=== PATIENT | male | born 1945 | race Caucasian/White ===

== ENCOUNTER 2017-01-01 10:20 | Emergency (ER) | payer OTHER, BC ==
[~2017-01-01] VITALS: Ht 182.9 cm; Wt 76.2 kg
[~2017-01-01 10:20] MED LIST: ADULT LOW DOSE81 M1 PO; ATENOLOL25 MG PO; DAILY MULTIPLE1 EACH PO; ENDOCET 5-3251 EACH PO; FLOMAX0.4 MG PO; LEVOFLOXACIN500 MG PO; LIPITOR10 MG PO; LIPITOR20 MG PO; MEDROL DOSEPAK4 MG PO; PHENAZOPYRIDIN200 MG PO; PRILOSEC40 MG PO; PROSCAR5 MG PO; ULTRAM50 MG PO; VITAMIN C1000 MG PO
[2017-01-01 12:06] LABS: INFLUENZA A VIRAL ANTIGEN NEGATIVE; INFLUENZA B VIRAL ANTIGEN NEGATIVE
[2017-01-01] MEDS ORDERED: VENTOLIN HFA18 GM IH (12:13)
[2017-01-01 12:26] VITALS: BP 138/79
== END 2017-01-01 12:27 | disposition home or self-care (01) ==
LOC: EME 10:20
PROVIDERS: Nurse Practitioner Family
DX: J06.9 Acute upper respiratory infection, unspecified (principal); E78.5 Hyperlipidemia, unspecified; I10 Essential (primary) hypertension; K21.9 Gastro-esophageal reflux disease without esophagitis; Z85.79 Personal history of other malignant neoplasms of lymphoid, hematopoietic and related tissues
CPT/HCPCS: 71020; 87502; 99281; 99284

== ENCOUNTER 2017-04-10 11:34 | Emergency (ER) | payer OTHER, BC ==
[~2017-04-10] VITALS: Ht 180.3 cm; Wt 76.0 kg
[~2017-04-10 11:34] MED LIST changes: +VENTOLIN HFA18 GM IH
[2017-04-10 14:10] VITALS: BP 130/85
== END 2017-04-10 14:11 | disposition home or self-care (01) ==
LOC: EME 11:34
DX: R05 Cough (principal); J84.9 Interstitial pulmonary disease, unspecified; I10 Essential (primary) hypertension; E78.5 Hyperlipidemia, unspecified; K21.9 Gastro-esophageal reflux disease without esophagitis; Z87.01 Personal history of pneumonia (recurrent); Z85.72 Personal history of non-Hodgkin lymphomas; Z79.82 Long term (current) use of aspirin
CPT/HCPCS: 71020; 99281; 99283

== ENCOUNTER 2017-11-06 05:23 | Emergency (ER) | payer OTHER, BC ==
[~2017-11-06] VITALS: Ht 180.3 cm; Wt 76.1 kg
[2017-11-06 06:42] LABS: HEMATOCRIT 42.7 % (38.0-50.0); HEMOGLOBIN 14.7 G/DL (12.5-16.6); MCH 31.2 PG (29.0-34.0); MCHC 34.4 G/DL (30.0-36.0); MCV 90.7 FL (86-99); PLATELET COUNT 236 K/uL (156-360); RBC DIS.WIDTH-CV 12.4 % (11.8-14.6); RBC DIS.WIDTH-SD 41.3 % (39-53); RED BLOOD COUNT 4.71 M/uL (4.00-5.50); WHITE BLOOD COUNT 8.8 K/uL (4.1-10.2)
[2017-11-06 06:55] LABS: CHLORIDE 103 mEq/L (99-109); POTASSIUM 4.3 mEq/L (3.7-5.4); SODIUM 137 mEq/L (136-147)
[2017-11-06 06:56] LABS: GLUCOSE 112 mg/dL (70-99)
[2017-11-06 07:00] LABS: CREATININE 0.9 mg/dL (0.6-1.3); GFR ESTIMATE (CALCULATED) > 59 mL/min/ (58.99-99999)
[2017-11-06 07:01] LABS: UREA NITROGEN (BUN) 11 mg/dL (9-23)
[2017-11-06 07:56] VITALS: BP 155/92
== END 2017-11-06 07:59 | disposition home or self-care (01) ==
LOC: EME 05:23
PROVIDERS: Nurse Practitioner Family
DX: J42 Unspecified chronic bronchitis (principal); J06.9 Acute upper respiratory infection, unspecified; Z85.72 Personal history of non-Hodgkin lymphomas; Z79.82 Long term (current) use of aspirin; Z88.2 Allergy status to sulfonamides; Z88.1 Allergy status to other antibiotic agents
CPT/HCPCS: 71020; 80048; 85027; 87502; 87651 90; 94640; 99281; 99284